=== PATIENT | female | born 1945 | race Caucasian/White ===

== ENCOUNTER 2017-01-08 05:42 | Day surgery (SDC) | payer BC ==
--- NOTE | ~2017-01-08 | EGD ---
EGD REPORT [facility] [address] [place] [place] [address] NAME: SARAH PARKER : [birth year] STATUS : REG [facility] [place] PAT#: [id number] AGE: 71 ADM/REG DATE : 01/08/17 MR#: [id number] REPORT SERV DATE: 01/08/17 DICTATED BY: TALI MORENO DATE: 01/08/17 REPORT STATUS : Draft TRANSCRIBED BY: [employer] DATE: 01/08/17 [facility] Patient Name: Sraah Parker Date of : 1945 Attending MD: TALI MORENO MD Procedure Date No Time: 01/08/2017 Procedure: Colonoscopy Indications: Screening in patient at increased risk: Family history of 1st-degree relative with colorectal cancer Referring MD: DO MARINA Medicines: as per anesthesia Complications: No immediate complications. Procedure: Pre-Anesthesia Assessment: - ASA Grade Assessment: II - A patient with mild systemic disease. After I obtained informed consent, the scope was passed under direct vision. Throughout the procedure, the patient's blood pressure, pulse, and oxygen saturations were monitored continuously. The PCF [id number] was introduced through the anus and advanced to the cecum, identified by appendiceal orifice and ileocecal valve. The colonoscopy was performed without difficulty. The patient tolerated the procedure. The quality of the bowel preparation was adequate to identify polyps. Findings: The perianal and digital rectal examinations were normal. A few small and large-mouthed diverticula were found in the sigmoid colon. Internal hemorrhoids were found during endoscopy and were mild. Impression: - Diverticulosis in the sigmoid colon. - Internal hemorrhoids. Recommendation: - Repeat colonoscopy in 5 years for surveillance. Procedure Code(s): --- Professional --- 75311, Colonoscopy, flexible, proximal to splenic flexure; diagnostic, with or without collection of specimen(s) by brushing or washing, with or without colon decompression (separate procedure) Diagnosis Code(s): --- Professional --- K64.8, Other hemorrhoids K57.30, Diverticulosis of large intestine without EGD REPORT [facility] [address] [place], [place] [address]ricardo [facility] [place] [address] NAME: SARAH PARKER : [birth year] STATUS : REG [facility]#: [id number] AGE: 71 ADM/REG DATE : 01/08/17 MR#: [id number] REPORT SERV DATE: 01/08/17 DICTATED BY: TALI MORENO DATE: 01/08/17 REPORT STATUS : Draft TRANSCRIBED BY: [employer] DATE: 01/08/17 perforation or abscess without bleeding Z12.11, Encounter for screening for malignant neoplasm of colon Z80.0, Family history of malignant neoplasm of digestive organs CPT copyright 2013 [employer]. All rights reserved. The codes documented in this report are preliminary and upon instrument assembly supervisor review may be revised to meet current compliance requirements. TALI MORENO MD 01/08/2017 7:50 AM This report has been signed electronically. Number of Addenda: 0 Note Initiated On: 01/08/2017 7:25 AM Scope Withdrawal Time 0 hours 9 minutes 9 seconds [address] [facility] [place] [address]
--- NOTE | ~2017-01-08 | EGD ---
EGD REPORT [facility] [address] [place] [place] [address] NAME: SARAH PARKER : [birth year] STATUS : REG [facility] [place] PAT#: [id number] AGE: 71 ADM/REG DATE : 01/08/17 MR#: [id number] REPORT SERV DATE: 01/08/17 DICTATED BY: TALI MORENO DATE: 01/08/17 REPORT STATUS : Draft [facility]ANSCRIBED [facility]: [facility] DATE: 01/08/17 [facility] Center Patient Name: Sarah Parker Date of : 1945 Attending MD: TALI MORENO MD Procedure Date No Time: 01/08/2017 Procedure: Upper GI endoscopy Indications: Heartburn, Suspected esophageal reflux Referring MD: DO MARINA Medicines: as per anesthesia Complications: No immediate complications. Procedure: Pre-Anesthesia Assessment: - ASA Grade Assessment: II - A patient with mild systemic disease. After obtaining informed consent, the endoscope was passed under direct vision. Throughout the procedure, the patient's blood pressure, pulse, and oxygen saturations were monitored continuously. The GIF H190 [id number] was introduced through the mouth, and advanced to the third part of duodenum. The upper GI endoscopy was accomplished without difficulty. The patient tolerated the procedure well. Findings: The examined esophagus was normal. Localized mild inflammation characterized by erythema was found in the gastric antrum. Biopsies were taken with a cold forceps for histology. The cardia and gastric fundus were normal on retroflexion. The examined duodenum was normal. Impression: - Normal esophagus. - Gastritis. Biopsied. - Normal examined duodenum. Recommendation: - Await pathology results. - Follow an antireflux regimen. - Continue present medications. Procedure Code(s): --- Professional --- 67922, Esophagogastroduodenoscopy, flexible, transoral; with biopsy, single or multiple Diagnosis Code(s): --- Professional --- K29.70, Gastritis, unspecified, without bleeding R12, Heartburn EGD REPORT [facility] [address] [place]. [address] NAME: SARAH PARKER : [birth year] STATUS : REG [facility]#: [id number] AGE: 71 ADM/REG DATE : 01/08/17 MR#: [id number] REPORT SERV DATE: 01/08/17 DICTATED BY: TALI MORENO. DATE: 01/08/17 REPORT STATUS : Draft TRANSCRIBED BY: [email or web address] DATE: 01/08/17 CPT copyright 2013 [employer]. All rights reserved. The codes documented in this report are preliminary and upon student development specialist review may be revised to meet current compliance requirements. TALI MORENO MD 01/08/2017 7:27 AM This report has been signed electronically. Number of Addenda: 0 Note Initiated On: 01/08/2017 7:04 AM Scope Withdrawal Time 0 hours 0 minutes 0 seconds [address] [facility] [place] [address]
[~2017-01-08 05:42] MED LIST: EFFEXXR75 PO; EXELON4.6T TOP; LEVOTHYROXIN25 MCG PO; MCZ25 PO; PRILO PO; ZOCOR20 PO
== END 2017-01-08 23:59 | disposition home or self-care (01) ==
LOC: DMU 05:42
PROVIDERS: Internal Medicine Gastroenterology
PROC: 0DJD8ZZ Inspection of Lower Intestinal Tract, Via Natural or Artificial Opening Endoscopic (ICD-10-PCS; principal; 2017-01-08 07:00)
PROC: 0DB68ZX Excision of Stomach, Via Natural or Artificial Opening Endoscopic, Diagnostic (ICD-10-PCS; 2017-01-08 07:00)
DX: Z12.11 Encounter for screening for malignant neoplasm of colon (principal); K29.50 Unspecified chronic gastritis without bleeding; K64.8 Other hemorrhoids; K57.30 Diverticulosis of large intestine without perforation or abscess without bleeding; E78.00 Pure hypercholesterolemia, unspecified; E03.9 Hypothyroidism, unspecified; M19.90 Unspecified osteoarthritis, unspecified site; E78.5 Hyperlipidemia, unspecified; Z80.0 Family history of malignant neoplasm of digestive organs
CPT/HCPCS: 43239; G0105; 88305